=== PATIENT | male | born 1960 | race Caucasian/White ===

== ENCOUNTER 2016-07-12 19:34 | Emergency (ER) | payer BC ==
[~2016-07-12] VITALS: Ht 171.4 cm; Wt 101.0 kg
[~2016-07-12 19:34] MED LIST: AUGM875 PO; IBUP-232 PO; SULF1TAB47 PO; Z.0.NO CURRENT MEDS
[2016-07-12 19:36] VITALS: BP 135/85; PULSE 104; RESP 16; TEMP 98.3; O2SAT 97
[2016-07-12] MEDS ORDERED: HYDR12.57 PO (19:54)
[2016-07-12] MEDS ORDERED: LISI10TA3 PO (19:54)
--- NOTE | 2016-07-12 19:56 | PD ---
HPI Chief Complaint: ENT Complaint Time Seen by Provider: 19:47 Travel History International Travel<30 days: No Contact w/Intl Traveler<30days: No Traveled to known affect area: No History of Present Illness HPI 56-year-old male presents for evaluation of right ear pain. Symptoms started 2 days ago. Pain is a throbbing pain in the right ear canal which is constant, worse with manipulation of the right ear. He has decreased hearing in the right ear as well. Denies cough, congestion, sore throat, fever or chill, recent swimming, recent travel. Denies ear drainage. He has no other complaints at this time. [facility] Past Medical History Cardiovascular Problems: Yes (HTN) Diminished Hearing: No Immunizations Current: Yes Social History Alcohol Use: No Tobacco Use: Yes (Chewing Tobacco) Substance Use: No Allergies-Medications (Allergen,Severity, Reaction): Coded Allergies: No Known Allergies (Verified , 07/12/16) Reported Meds & Prescriptions Reported Meds & Active Scripts Active Augmentin (Amoxicillin-Clavulanate) 875-125 mg Tab 875 Mg PO BID 10 Days not for use in CrCl <30 ml/min. Cortisporin HC Otic Drops (Ikyytdli-Asvwpjsmv-RZ Otic Drops) 3.5-10,000-1 Mg- Units-% Soln 4 Drop RIGHT EAR QID 10 Days Reported Hydrochlorothiazide 12.5 Mg Cap 12.5 Mg PO DAILY Lisinopril 10 Mg Tab 10 Mg PO DAILY Review of Systems General / Constitutional: No: Fever, Chills HENT: Positive: Earache, No: Sore Throat, Ear Discharge Respiratory: No: Cough Physical Exam Narrative GENERAL: Well-developed well-nourished male in no acute distress SKIN: Warm and dry. HEAD: Atraumatic. Normocephalic. EYES: Pupils equal and round. No scleral icterus. No injection or drainage. ENT: No nasal bleeding or discharge. Mucous membranes pink and moist. The right external ear canal was erythematous, mildly edematous, unable to fully visualize the tympanic membrane secondary to pain. There is no foreign body, minimal cerumen. Left tympanic membrane by contrast is fully visualized and reveals normal anatomic landmarks without erythema, air fluid level. NECK: Trachea midline. No JVD. No lymphadenopathy CARDIOVASCULAR: Regular rate and rhythm. No murmur appreciated. RESPIRATORY: No accessory muscle use. Clear to auscultation. Breath sounds equal bilaterally. Data Data Last Documented VS Vital Signs Date Time Temp Pulse Resp B/P Pulse Ox O2 Delivery O2 Flow Rate FiO2 07/12/16 19:55 18 07/12/16 19:36 98.3 104 135/85 97 Room Air MDM Medical Decision Making Medical Screen Exam Complete: Yes Emergency Medical Condition: Yes Medical Record Reviewed: Yes Differential Diagnosis Right otitis externa, malignant otitis externa, otitis media, eustachian tube dysfunction, perforated tympanic membrane, mastoiditis, foreign body, cerumen impaction Narrative Course 56-year-old male presents with right ear pain, decreased hearing for 2 days. Examination reveals right otitis externa, unable to fully visualize the tympanic membrane. Plan is to discharge the patient with Cortisporin Otic solution, Augmentin. Recommended returning for worsening symptoms. He is stable for discharge. Diagnosis Primary Impression: Right otitis externa Qualified Code: H60.501 - Acute otitis externa of right ear, unspecified type Additional Instructions: Use the medication as prescribed. Do not get any water in right ear canal. Follow-up with primary care physician as needed. Return for any new or worsening symptoms. Med/Other Pt SpecificInfo: Prescription(s) given Scripts Amoxicillin-Clavulanate (Augmentin)875-125 mg Edq083 Mg PO BID 10 Days Ref 0 not for use in CrCl <30 ml/min. Prov:New Hansen MD 07/12/16 Wzzhttdv-Ezljlxtdq-MT Otic Drops (Cortisporin HC Otic Drops)3.5-10,000-1 Mg- Units-% Soln4 Drop RIGHT EAR QID 10 Days Ref 0 Prov:New Hansen MD 07/12/16 Disposition: DISCHARGE HOME Condition: Stable Saul Jack Jul 12, 2016 19:56
[2016-07-12] MEDS ORDERED: CORT1SOL RIGHT EAR (20:25)
[2016-07-12] MEDS ORDERED: AUGM875T PO (20:25)
[2016-07-12 20:37] VITALS: BP 149/76; TEMP 98.6
== END 2016-07-12 20:37 | disposition home or self-care (01) ==
LOC: NEPB 19:34
DX: H60.91 Unspecified otitis externa, right ear (principal); I10 Essential (primary) hypertension; Z72.0 Tobacco use
CPT/HCPCS: 99282

== ENCOUNTER 2016-12-17 13:59 | Emergency (ER) | payer BC ==
[~2016-12-17] VITALS: Ht 170.2 cm; Wt 99.0 kg
[~2016-12-17 13:59] MED LIST changes: -AUGM875 PO; +AUGM875T PO; +CORT1SOL RIGHT EAR; +HYDR12.57 PO; -IBUP-232 PO; +LISI10TA3 PO; -SULF1TAB47 PO; -Z.0.NO CURRENT MEDS
[2016-12-17 14:01] VITALS: BP 142/83; PULSE 86; RESP 20; TEMP 98.9; O2SAT 96
--- NOTE | 2016-12-17 14:04 | PD ---
Physical Exam Date Seen by Provider: Dec 17, 2016 Time Seen by Provider: 14:02 Narrative 56 yo male here for evaluations of congestion. Has had chest congestion, chills and sweats. Cough. Feels like he cant breath. Got a sunburn 4 days ago. Body aches. Productive. No sick contacts. Vitals are stable in triage. Awaiting bed placement. Data Data Last Documented VS Vital Signs Date Time Temp Pulse Resp B/P Pulse Ox O2 Delivery O2 Flow Rate FiO2 12/17/16 14:01 98.9 86 20 142/83 96 Room Air [facility] Medical Record Reviewed: Yes Supervised Visit with ANGELIA: No Faisal Bueno Dec 17, 2016 14:04
[2016-12-17 14:42] VITALS: BP 126/68; PULSE 77; RESP 16; TEMP 99.2; O2SAT 98
--- NOTE | 2016-12-17 15:22 | PD ---
HPI Chief Complaint: Cold / Flu Symptoms Time Seen by Provider: 15:19 Travel History International Travel<30 days: No Contact w/Intl Traveler<30days: No Traveled to known affect area: No History of Present Illness HPI 56-year-old male presents to the emergency department for evaluation of cold symptoms for 4 days. Patient states he went to the beach 4 days ago and got sunburned. He started with his symptoms shortly after. Patient has had sick contacts including his son and [id number]. The patient reports chest congestion and cough. He states he has chest pain only with coughing. He denies any shortness of breath. Patient denies any abdominal pain. No nausea, vomiting, diarrhea. He denies any fevers. Patient has history of hypertension and is on lisinopril and hydrochlorothiazide. He denies any other medical problems. Patient denies any recent surgery or travel. No hemoptysis. No history DVT or PE. PFSH Past Medical History Cardiovascular Problems: Yes (HTN) Diminished Hearing: No Hypertension: Yes Immunizations Current: Yes Past Surgical History Surgical History: No Previous Surgery Social History Alcohol Use: Yes (OCCASIONAL) Tobacco Use: Yes (Chewing Tobacco) Substance Use: No Allergies-Medications (Allergen,Severity, Reaction): Coded Allergies: No Known Allergies (Verified , 12/17/16) Reported Meds & Prescriptions Reported Meds & Active Scripts Active Augmentin (Amoxicillin-Clavulanate) 875-125 mg Tab 875 Mg PO BID 10 Days not for use in CrCl <30 ml/min. Cortisporin HC Otic Drops (Jcfazldh-Njmvizdhi-XQ Otic Drops) 3.5-10,000-1 Mg- Units-% Soln 4 Drop RIGHT EAR QID 10 Days Reported Hydrochlorothiazide 12.5 Mg Cap 12.5 Mg PO DAILY Lisinopril 10 Mg Tab 10 Mg PO DAILY Review of Systems Except as stated in HPI: all other systems reviewed are Neg Physical Exam Narrative GENERAL: Well-nourished, well-developed male patient, afebrile. SKIN: Focused skin assessment warm/dry. HEAD: Normocephalic. Atraumatic ENT: Mucosa pink and moist. No erythema or exudates. No uvular edema. No uvular , palatal, or tonsillar deviation. Airway patent. Nasal turbinates appear normal without nasal blood, purulent drainage or septal hematoma. Bilateral tympanic membranes are clear without erythema or perforation. EYES: No scleral icterus. No injection or drainage. NECK: Supple, trachea midline. No JVD or lymphadenopathy. CARDIOVASCULAR: Regular rate and rhythm without murmurs, gallops, or rubs. RESPIRATORY: Breath sounds equal bilaterally. No accessory muscle use. Lungs sounds with slight expiratory wheezes noted. GASTROINTESTINAL: Abdomen soft, non-tender, nondistended. MUSCULOSKELETAL: No cyanosis, or edema. BACK: Nontender without obvious deformity. No CVA tenderness. Data Data Last Documented VS Vital Signs Date Time Temp Pulse Resp B/P Pulse Ox O2 Delivery O2 Flow Rate FiO2 12/17/16 15:54 81 18 119/59 96 Room Air 12/17/16 14:42 99.2 Orders Electrocardiogram (12/17/16 ) Chest, Single Ap (12/17/16 15:17) Prednisone (Deltasone) (12/17/16 15:30) Albuterol-Ipratropium Neb (Duoneb Neb) (12/17/16 15:30) [facility] Medical Decision Making Medical Screen Exam Complete: Yes Emergency Medical Condition: Yes Medical Record Reviewed: Yes Interpretation(s) chest x-ray = CONCLUSION: 1. No acute cardiopulmonary disease. Differential Diagnosis Pneumonia versus bronchitis versus URI Narrative Course 56-year-old male presents to the emergency department for evaluation of cough and chest congestion for 4 days. Patient is given DuoNeb 2, prednisone 60 mg by mouth. Chest x-ray is ordered and pending. EKG shows SR with occasional PVCs, no acute ST changes. Chest x-ray shows no acute cardiopulmonary disease. Patient will be discharged with a prescription for prednisone, azithromycin. He is to follow up with his primary care physician. He is to return for any acute, worsening of symptoms. The patient was discharged in stable condition with instructions, including return instructions and follow up instructions. Diagnosis Primary Impression: Upper respiratory infection Qualified Code: J06.9 - Upper respiratory tract infection, unspecified type Referrals: Primary Care Physician call for appointment Patient Instructions: General Instructions, Upper Respiratory Infection (ED) Departure Forms: Tests/Procedures, Work Release Enter return to work date: Dec 20, 2016 Additional Instructions: Take antibiotic as directed until gone. Take prednisone as directed. Start this tomorrow. Follow up with a primary care physician. Return to the emergency department for any acute, worsening of symptoms. Med/Other Pt SpecificInfo: Prescription(s) given Scripts Prednisone 20 Mg Tab40 Mg PO DAILY 4 Days Ref 0 Prov:Ritika Austin 12/17/16 Azithromycin (Zithromax Z-Deo)250 Mg [id number] Mg PO DIRECTED #1 DSPK Ref 0 500 MG (2 tabs) day 1, then 1 tab days 2-5. Prov:Ritika Austin 12/17/16 Disposition: 01 DISCHARGE HOME Condition: Stable Ritika Austin Dec 17, 2016 15:22
[2016-12-17] MEDS: RESP: ALBUTEROL 2.5 MG/IPRATROPIUM 0.5 MG NEB (SCH) INH (15:27)
[2016-12-17] MEDS ORDERED: predniSONE 20 MG TAB PO ONE (15:30)
[2016-12-17 15:54] VITALS: BP 119/59; PULSE 81; RESP 18; O2SAT 96
--- NOTE | 2016-12-17 16:03 | RADRPT ---
EXAM DATE/TIME: 12/17/2016 15:15 [place] COMPARISON: No previous studies available for comparison. INDICATIONS : Cough and difficulty breathing for several days. MEDICAL HISTORY : None. SURGICAL HISTORY : None. ENCOUNTER: Initial ACUITY: 2 days PAIN SCORE: 2/10 LOCATION: Bilateral chest FINDINGS: A single view of the chest demonstrates the lungs to be symmetrically aerated without evidence of mas s, infiltrate or effusion. The cardiomediastinal contours are unremarkable. Osseous structures are intact. CONCLUSION: 1. No acute cardiopulmonary disease. Brigido Saldana MD on December 17, 2016 at 16:00 Board Certified Radiologist. This report was verified electronically.
[2016-12-17] MEDS ORDERED: ZITHTAB PO (16:14)
[2016-12-17] MEDS ORDERED: PRED20 PO (16:14)
--- NOTE | 2016-12-18 08:06 | EKG ---
Date Performed: 12/17/2016 Time Performed: 14:17:09 PTAGE: 56 years EKG: Sinus rhythm WITH OCCASIONAL VENTRICULAR PREMATURE COMPLEXES BORDERLINE ECG PREVIOUS TRACING : 07/15/2010 20.14 DOCTOR: Pavan Ayon Interpretating Date/Time 12/18/2016 07:59:44
== END 2016-12-17 16:32 | disposition home or self-care (01) ==
LOC: NEPD 13:59
DX: J06.9 Acute upper respiratory infection, unspecified (principal); R05 Cough; R07.9 Chest pain, unspecified; I10 Essential (primary) hypertension; F17.220 Nicotine dependence, chewing tobacco, uncomplicated; Z79.899 Other long term (current) drug therapy
CPT/HCPCS: 71010; 93005; 94640; 94664; 99284; J7512